=== PATIENT | female | born 1980 | race Caucasian/White ===

== ENCOUNTER 2016-12-16 18:02 | Emergency (ER) | payer OTHER ==
[2016-12-16 18:09] VITALS: TEMP 97.8; BMI 36.9
[2016-12-16] MEDS ORDERED: ASPIRIN 81 MG CHEWABLE TABLETS PO ONE (18:17)
[2016-12-16 18:41] LABS: BASOPHIL 0.9 % (0-2.0); EOSINOPHIL 2.2 % (0-4.5); MCH 28.1 pg (25.7-33.7); MCHC 33.1 g/dl (32.0-36.0); MEAN CELL VOLUME 85.1 fl (80-96); MEAN PLT VOLUME 8.3 fl (7.5-11.1); NEUTROPHILS 56.1 % (42.8-82.8); PLATELET COUNT 223 K/MM3 (134-434); RDW 13.8 % (11.6-15.6)
[2016-12-16] MEDS ORDERED: ASPIRIN 81 MG CHEWABLE TABLETS ONE (18:44)
[2016-12-16 19:04] LABS: INR 1.08 (0.82-1.09); PROTHROMBIN TIME (PATIENT) 11.9 SEC (9.98-11.88)
--- NOTE | 2016-12-16 19:41 | PDOC ---
History of Present Illness - General History Source: Patient Exam Limitations: No Limitations <Vinh Rich - Last Filed: 12/16/16 19:44> <Fátima Zacarias - Last Filed: 12/18/16 00:50> - General Chief Complaint: Chest Pain Stated Complaint: CHEST PAIN/DIFF BREATHING Time Seen by Provider: 12/16/16 18:16 - History of Present Illness Initial Comments: 12/16/16 19:44 The patient is a 36 year old female, with no significant past medical history who presents to the emergency department with chest pain and SOB for about 3 hours. The patient reports having an acute sudden onset of her pain while sitting down watching TV. She reports having a similar episode about 3 weeks ago. She describes the pain as dull, nonradiating, and localized at the mid sternum region of her chest. She also notes having numbness in her right hand during her symptomatic episodes. The patient ranks her pain a 9/10 in pain intensity and reports having nausea in association with her chest pain. She denies recent fevers, chills, headache or dizziness. She denies recent vomit, diarrhea or constipation. She denies recent dysuria, frequency, urgency or hematuria. She denies recent sick contacts and recent travel. LMP was yesterday. She also reports starting to take weight loss pill. Allergies: NKA Past surgical history: Abdominoplasty Social history: Nonsmoker. Denies EtOH use and recreational drug use. Primary Care Physician: Dr. Quinn Dean (Vinh Rich) Past History <Vinh Rich - Last Filed: 12/16/16 19:44> - Past Medical History Anemia: No Asthma: No Cancer: No Cardiac Disorders: No CVA: No COPD: No CHF: No Dementia: No Diabetes: No GI Disorders: No Disorders: No HTN: No Hypercholesterolemia: No Liver Disease: No Seizures: No Thyroid Disease: No Other medical history: DENIES. - Surgical History Abdominal Surgery: Yes (ABDOMINOPLASTY 2008) Appendectomy: No Cardiac Surgery: No Cholecystectomy: No Lung Surgery: No Neurologic Surgery: No Orthopedic Surgery: No - Psycho/Social/Smoking Cessation Hx Suicidal Ideation: No Smoking Status: No Smoking History: Never smoked Have you smoked in the past 12 months: No Number of Cigarettes Smoked Daily: 0 Hx Alcohol Use: Yes (OCCASIONALLY) Drug/Substance Use Hx: No Substance Use Type: Alcohol Hx Substance Use Treatment: No <Fátima Zacarias - Last Filed: 12/18/16 00:50> - Past Medical History Allergies/Adverse Reactions: Allergies Allergy/AdvReac Type Severity Reaction Status Date / Time No Known Drug Allergies Allergy Verified 12/16/16 18:05 Home Medications: Ambulatory Orders NK [No Known Home Medication] 06/07/16 Cardiac Specific PMH - Complaint Specific PMHX Pacemaker: No <Fátima Zacarias - Last Filed: 12/18/16 00:50> Review of Systems - Review of Systems Able to Perform ROS?: Yes <Vinh Rich - Last Filed: 12/16/16 19:44> <Fátima Zacarias - Last Filed: 12/18/16 00:50> - Review of Systems Comments:: 12/16/16 19:45 CONSTITUTIONAL: Absent: fever, chills, diaphoresis, generalized weakness, malaise, loss of appetite HEENT: Absent: rhinorrhea, nasal congestion, throat pain, throat swelling, difficulty swallowing, mouth swelling, ear pain, eye pain, visual Changes CARDIOVASCULAR: +chest pain. Absent: syncope, palpitations, irregular heart rate, lightheadedness, peripheral edema RESPIRATORY: +SOB. Absent: cough, dyspnea with exertion, orthopnea, wheezing, stridor, hemoptysis GASTROINTESTINAL: +nausea. Absent: abdominal pain, abdominal distension, vomiting, diarrhea, constipation, melena, hematochezia GENITOURINARY: Absent: dysuria, frequency, urgency, hesitancy, hematuria, flank pain, genital pain MUSCULOSKELETAL: Absent: myalgia, arthralgia, joint swelling SKIN: Absent: rash, itching, pallor HEMATOLOGIC/IMMUNOLOGIC: Absent: easy bleeding, easy bruising, lymphadenopathy, frequent infections ENDOCRINE: Absent: unexplained weight gain, unexplained weight loss, heat intolerance, cold intolerance NEUROLOGIC: Absent: headache, focal weakness or paresthesias, dizziness, unsteady gait, seizure, mental status changes, bladder or bowel incontinence PSYCHIATRIC: Absent: anxiety, depression, suicidal or homicidal ideation, hallucinations. (Vinh Rich) *Physical Exam <Vinh Rich - Last Filed: 12/16/16 19:44> <Fátima Zacarias - Last Filed: 12/18/16 00:50> - Vital Signs Last Vital Signs Temp Pulse Resp BP Pulse Ox 97.8 F 98 H 17 140/98 98 12/16/16 23:39 12/16/16 23:39 12/16/16 23:39 12/16/16 23:39 12/16/16 23:39 - Physical Exam Comments: 12/16/16 19:45 GENERAL: Well developed, Heavy set. Awake and alert x3. No acute distress. HEENT: Normocephalic, atraumatic. PERRLA, EOMI. No conjunctival pallor. Sclera are non- icteric. Moist mucous membranes. Oropharynx is clear. NECK: Supple. Full ROM. No JVD. Carotid pulses 2+ and symmetric, without bruits. No thyromegaly. No lymphadenopathy. CARDIOVASCULAR: Regular rate and rhythm. No murmurs, rubs, or gallops. Distal pulses are 2+ and symmetric. PULMONARY: No evidence of respiratory distress. Lungs clear to auscultation bilaterally. No wheezing, rales or rhonchi. ABDOMINAL: Soft. Non-tender. Non-distended. No rebound or guarding. No organomegaly. Normoactive bowel sounds. MUSCULOSKELETAL Normal range of motion at all joints. No bony deformities or tenderness. No CVA tenderness. EXTREMITIES: No cyanosis. No clubbing. No edema. No calf tenderness. SKIN: Warm and dry. Normal capillary refill. No rashes. No jaundice. NEUROLOGICAL: Alert, awake, appropriate. Cranial nerves 2-12 intact. No deficits to light touch and temperature in face, upper extremities and lower extremities. No motor deficits in the in face, upper extremities and lower extremities. Normoreflexic in the upper and lower extremities. Normal speech. Toes are down- going bilaterally. Gait is normal without ataxia. PSYCHIATRIC: Cooperative. Good eye contact. Appropriate mood and affect. (Vinh Rich) ED Treatment Course - LABORATORY CBC & Chemistry Diagram: 12/16/16 18:23 12/16/16 18:23 <Vinh Rich - Last Filed: 12/16/16 19:44> - LABORATORY CBC & Chemistry Diagram: 12/16/16 18:23 12/16/16 18:23 <Fátima Zacarias - Last Filed: 12/18/16 00:50> - ADDITIONAL ORDERS Additional order review: 12/16/16 18:23 RBC 4.46 MCV 85.1 MCHC 33.1 RDW 13.8 MPV 8.3 Neutrophils % 56.1 Lymphocytes % 35.2 Monocytes % 5.6 Eosinophils % 2.2 Basophils % 0.9 - RADIOLOGY Radiology Studies Ordered: Category Date Time Status CHEST PA & LAT [RAD] Stat Radiology 12/16/16 20:34 Completed - Medications Given in the ED: ED Medications Discontinued Medications Generic Name Dose Route Start Last Admin Trade Name Ken PRN Reason Stop Dose Admin Aspirin 162 mg 12/16/16 18:17 12/16/16 18:43 Asa - PO 12/16/16 18:18 162 mg ONCE ONE Administration Metoprolol Tartrate 25 mg 12/16/16 23:13 12/16/16 23:37 Lopressor - PO 12/16/16 23:14 25 mg ONCE ONE Administration Medical Decision Making <Vinh Rich - Last Filed: 12/16/16 19:44> <Fátima Zacarias - Last Filed: 12/18/16 00:50> - Medical Decision Making 12/18/16 00:43 36 yo non female has been taking phentermine for weight loss and developed chest pain and sob,she received aspirin -her pain resolved during her observation period -no evidence of AMI on her ekg -she had 2 sets of cardiac enzymes that were negative -labs reviewed -discussed with the pt to refrain from taking phentermine and seeing her physician. I told her that she must have an ECHO and see cardiology before continuing her medication 12/18/16 00:49 (Fátima Zacarias) *DC/Admit/Observation/Transfer <Vinh Rich - Last Filed: 12/16/16 19:44> <Fátima Zacarias - Last Filed: 12/18/16 00:50> Diagnosis at time of Disposition: Exposure to phentermine Qualifiers: Encounter type: initial encounter Qualified Code(s): T50.5X5A - Adverse effect of appetite depressants, initial encounter Chest pain Qualifiers: Chest pain type: unspecified Qualified Code(s): R07.9 - Chest pain, unspecified - Discharge Dispostion Disposition: HOME Condition at time of disposition: Stable - Patient Instructions Printed Discharge Instructions: Phentermine Additional Instructions: please follow up with you rphysician this week Please avoid taking phentermine until you speak to your physician - Attestations Scribe Attestion: 12/16/16 19:45 Documentation prepared by Vinh Rich, acting as medical insurance verifier for Fátima Zacarias MD. (Layla,Vinh)
[2016-12-16 19:45] LABS: ALBUMIN 4.1 g/dl (3.4-5.0); ANION GAP 8 (8-16); BILIRUBIN,TOTAL 0.2 mg/dL (0.2-1.0); CALCIUM 8.9 mg/dL (8.5-10.1); CO2 28 mmol/L (21-32); CREATININE 0.8 mg/dL (0.55-1.02); GLUCOSE,RANDOM 83 mg/dL (74-106); MAGNESIUM 2.2 mg/dL (1.8-2.4); SGOT/AST 18 U/L (15-37); SGPT/ALT 23 U/L (12-78); TOT PROT 7.9 g/dl (6.4-8.2)
[2016-12-16 19:48] LABS: ALK PHOS 66 U/L (45-117); TROPONIN I < 0.02 ng/ml (0.00-0.05)
[2016-12-16] MEDS ORDERED: METOPROLOL TARTRATE 25 MG TABLET (FP) PO ONE (23:13)
[2016-12-16] MEDS ORDERED: METOPROLOL TARTRATE 25 MG TABLET (FP) ONE (23:30)
[2016-12-16 23:41] VITALS: BP 140/98; PULSE 98
[2016-12-17 00:04] LABS: TROPONIN I < 0.02 ng/ml (0.00-0.05)
--- NOTE | 2016-12-17 10:30 | EKG ---
Test Reason : Blood Pressure : / mmHG Vent. Rate : 093 BPM Atrial Rate : 093 BPM P-R Int : 168 ms QRS Dur : 088 ms QT Int : 360 ms P-R-T Axes : 042 054 021 degrees QTc Int : 447 ms NORMAL SINUS RHYTHM POSSIBLE LEFT ATRIAL ENLARGEMENT BORDERLINE ECG NO PREVIOUS ECGS AVAILABLE Confirmed by WILLY ESCALERA MD ([id number]) on 12/17/2016 10:29:28 AM Referred By: Confirmed By:WILLY ESCALERA MD
--- NOTE | 2016-12-17 10:33 | EKG ---
Test Reason : Blood Pressure : / mmHG Vent. Rate : 098 BPM Atrial Rate : 098 BPM P-R Int : 156 ms QRS Dur : 090 ms QT Int : 352 ms P-R-T Axes : 047 050 026 degrees QTc Int : 449 ms NORMAL SINUS RHYTHM NORMAL ECG NO PREVIOUS ECGS AVAILABLE Confirmed by WILLY ESCALERA MD ([id number]) on 12/17/2016 10:33:26 AM Referred By: Confirmed By:WILLY ESCALERA MD
== END 2016-12-17 01:30 | disposition home or self-care (01) ==
LOC: JER 18:02
DX: R07.89 Other chest pain (principal); T50.5X5A Adverse effect of appetite depressants, initial encounter; Y92.038 Other place in apartment as the place of occurrence of the external cause
CPT/HCPCS: 36415; 71020-TC; 80053; 82550; 82553; 83735; 84484; 84703; 85025; 85379; 85610; 93005; 93010; 99285-25

== ENCOUNTER 2018-10-28 21:49 | Emergency (ER) | payer OTHER ==
[2018-10-28 22:30] VITALS: TEMP 98.9; BMI 32.5
--- NOTE | 2018-10-29 00:14 | PDOC ---
*Physical Exam - Vital Signs Last Vital Signs Temp Pulse Resp BP Pulse Ox 98.9 F 107 H 20 137/99 99 10/28/18 22:27 10/28/18 22:27 10/28/18 22:27 10/28/18 22:27 10/28/18 22:27 ED Treatment Course - LABORATORY CBC & Chemistry Diagram: 10/29/18 00:33 10/29/18 00:33 Medical Decision Making - Medical Decision Making 10/29/18 00:14 Patient seen by the advanced practice provider under my direct supervision. Ancillary testing reviewed as necessary. I agree with plan as outlined by the advanced practice provider. *DC/Admit/Observation/Transfer Diagnosis at time of Disposition: Diarrhea Qualifiers: Diarrhea type: unspecified type Qualified Code(s): R19.7 - Diarrhea, unspecified - Referrals Referrals: Milad Melton PA [Primary Care Provider] - - Patient Instructions - Post Discharge Activity
--- NOTE | 2018-10-29 00:26 | PDOC ---
History of Present Illness - General Chief Complaint: Diarrhea Stated Complaint: DIARRHEA Time Seen by Provider: 10/29/18 00:12 History Source: Patient - History of Present Illness Initial Comments: 10/29/18 01:33 38-year-old female complaining of diarrhea more than 7 times today. denies bloody diarrhea, Patient has generalized abdominal pain. Denies nausea, vomiting. 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 Denies fevers/chills, anorexia. 10/29/18 01:39 Past History - Past Medical History Allergies/Adverse Reactions: Allergies Allergy/AdvReac Type Severity Reaction Status Date / Time No Known Drug Allergies Allergy Verified 10/28/18 22:27 Home Medications: Ambulatory Orders NK [No Known Home Medication] 06/07/16 Anemia: No Asthma: No Cancer: No Cardiac Disorders: No CVA: No COPD: No CHF: No Dementia: No Diabetes: No GI Disorders: No Disorders: No HTN: Yes Hypercholesterolemia: No Liver Disease: No Seizures: No Thyroid Disease: No - Surgical History Abdominal Surgery: Yes (ABDOMINOPLASTY 2008) Appendectomy: No Cardiac Surgery: No Cholecystectomy: No Lung Surgery: No Neurologic Surgery: No Orthopedic Surgery: No - Suicide/Smoking/Psychosocial Hx Smoking Status: No Smoking History: Never smoked Have you smoked in the past 12 months: No Number of Cigarettes Smoked Daily: 0 Information on smoking cessation initiated: No Hx Alcohol Use: No Drug/Substance Use Hx: No Substance Use Type: Alcohol Hx Substance Use Treatment: No Review of Systems - Review of Systems Able to Perform ROS?: Yes Is the patient limited Divehi proficient: No Constitutional: No: Symptoms Reported, See HPI, Chills, Diaphoresis, Fever, Loss of Appetite, Malaise, Night Sweats, Weakness, Weight Stable, Unintentional Wgt. Loss, Unexplained wgt Loss, Other ABD/GI: Yes: Diarrhea, Abdominal cramping : No: Symptoms Reported, See HPI, Burning, Dysuria, Discharge, Frequency, Flank Pain, Hematuria, Incontinence, Pain, Urgency, Testicular Mass, Testicular Swelling, Lesions, Testicular Pain, Other Musculoskeletal: No: Symptoms Reported, See HPI, Back Pain, Gout, Joint Pain, Joint Swelling, Muscle Pain, Muscle Weakness, Neck Pain, Joint Stiffness, Other *Physical Exam - Vital Signs Last Vital Signs Temp Pulse Resp BP Pulse Ox 98.9 F 107 H 20 137/99 99 10/28/18 22:27 10/28/18 22:27 10/28/18 22:27 10/28/18 22:27 10/28/18 22:27 - Physical Exam General Appearance: Yes: Appropriately Dressed Respiratory/Chest: positive: Lungs Clear, Normal Breath Sounds Cardiovascular: positive: Regular Rhythm, Regular Rate Gastrointestinal/Abdominal: positive: Tender (generalized tenderness), Soft, Increased Bowel Sounds Extremity: positive: Normal Capillary Refill, Normal Inspection, Normal Range of Motion Integumentary: positive: Dry, Warm ED Treatment Course - LABORATORY CBC & Chemistry Diagram: 10/29/18 00:33 10/29/18 02:19 Progress Note - Progress Note Progress Note: diarrhea gastroenteritis p: labs ivf ua Medical Decision Making - Medical Decision Making 10/29/18 03:05 patient now has no abdominal pain. reports feeling better. will d/ chome/ *DC/Admit/Observation/Transfer Diagnosis at time of Disposition: Gastroenteritis Diarrhea Qualifiers: Diarrhea type: unspecified type Qualified Code(s): R19.7 - Diarrhea, unspecified - Discharge Dispostion Disposition: HOME - Referrals Referrals: Milad Melton PA [Primary Care Provider] - - Patient Instructions Printed Discharge Instructions: Viral Gastroenteritis Additional Instructions: drink plenty of fluids BRAT(bananas, rice , apples, toast) diet follow up with your doctor as soon as possible. Additional Instructions: * Please call your personal physician to report your Emergency Department visit and to report your progress, if any. * If there is no improvement in symptoms in 2 days call your physician. * Return to the Emergency Department for any worsening symptoms. - Post Discharge Activity Forms/Work/School Notes: Back to Work
[2018-10-29] MEDS ORDERED: SODIUM CHLORIDE 1,000 ML IV STA (00:27)
[2018-10-29] MEDS ORDERED: FAMOTIDINE 20 MG/50 ML IVPB 20 MG/50 ML MG IVPB ONE ×2 (00:33→01:04)
[2018-10-29] MEDS ORDERED: ONDANSETRON 4 MG/2 ML VIAL IVPUSH ONE (00:33)
[2018-10-29 00:41] LABS: BASO % 1.1 % (0-2.0); EOS % 1.6 % (0-4.5); HEMATOCRIT 38.6 % (32.4-45.2); HEMOGLOBIN 13.4 GM/dL (10.7-15.3); LYMPH % 30.1 % (8-40); MCH 30.8 pg (25.7-33.7); MCHC 34.8 g/dl (32.0-36.0); MEAN CELL VOLUME 88.7 fl (80-96); MEAN PLT VOLUME 8.5 fl (7.5-11.1); MONO % 10.3 % (3.8-10.2); NEUT % 56.9 % (42.8-82.8); PLATELET COUNT 203 K/MM3 (134-434); RBC 4.35 M/mm3 (3.60-5.2); RDW 13.8 % (11.6-15.6)
[2018-10-29] MEDS ORDERED: ONDANSETRON 4 MG/2 ML VIAL ONE (01:17)
[2018-10-29 01:54] LABS: PH,URINE 6.5 (5.0-8.0); URINE APPEARANCE CLEAR; URINE BILIRUBIN NEGATIVE (NEGATIVE); URINE COLOR YELLOW; URINE GLUCOSE (UA) NEGATIVE (NEGATIVE); URINE KETONE NEGATIVE (NEGATIVE); URINE LEUK ESTERASE TRACE (NEGATIVE); URINE NITRITE NEGATIVE (NEGATIVE); URINE PROTEIN NEGATIVE (NEGATIVE)
[2018-10-29 02:47] LABS: EPI CELLS 20 /HPF (0-5); URINE BACTERIA 120 /hpf (NEGATIVE); URINE WBC 15 /hpf (0-5)
[2018-10-29 02:50] LABS: ALBUMIN 3.4 g/dl (3.4-5.0); ALK PHOS 53 U/L (45-117); ANION GAP 9 MMOL/L (8-16); BILIRUBIN,TOTAL 0.2 mg/dL (0.2-1); BLOOD UREA NITROGEN 8 mg/dL (7-18); CALCIUM 7.7 mg/dL (8.5-10.1); CHLORIDE 110 mmol/L (98-107); CO2 22 mmol/L (21-32); CREATININE 0.7 mg/dL (0.55-1.3); GLUCOSE,RANDOM 83 mg/dL (74-106); LIPASE 142 U/L (73-393); POTASSIUM 3.8 mmol/L (3.5-5.1); SGOT/AST 25 U/L (15-37); SGPT/ALT 38 U/L (13-61); SODIUM 141 mmol/L (136-145)
[2018-10-29 03:15] VITALS: BP 162/99; PULSE 99
== END 2018-10-29 03:15 | disposition home or self-care (01) ==
LOC: JER 21:49
PROC: 3E0337Z Introduction of Electrolytic and Water Balance Substance into Peripheral Vein, Percutaneous Approach (ICD-10-PCS; principal; 2018-10-28)
PROC: 3E033GC Introduction of Other Therapeutic Substance into Peripheral Vein, Percutaneous Approach (ICD-10-PCS; 2018-10-28)
PROC: 3E033GC Introduction of Other Therapeutic Substance into Peripheral Vein, Percutaneous Approach (ICD-10-PCS; 2018-10-28)
DX: K52.9 Noninfective gastroenteritis and colitis, unspecified (principal)
CPT/HCPCS: 36415; 80053; 81003; 83690; 84703; 85025; 96361; 96365; 96375; 99282-25; J7030

== ENCOUNTER 2018-12-22 21:42 | Emergency (ER) | payer OTHER ==
[2018-12-22 21:56] VITALS: BP 154/96; PULSE 110; TEMP 98.4; BMI 32.5
--- NOTE | 2018-12-22 21:58 | PDOC ---
Rapid Medical Evaluation Chief Complaint: Pain, Acute Time Seen by Provider: 12/22/18 21:56 Medical Evaluation: Allergies Allergy/AdvReac Type Severity Reaction Status Date / Time No Known Drug Allergies Allergy Verified 12/22/18 21:54 12/22/18 21:56 I have performed a brief in-person evaluation of this patient. The patient presents with a chief complaint of: RUQ abd pains since yesterday with nausea but no vomiting. Denies diarrhea, constipation, fever or chills Pertinent physical exam findings: A&O x 3 I have ordered the following: CBC, CMP, lipase, abd U/S The patient will proceed to the ED for further evaluation. Discharge Disposition - Diagnosis Abdominal pain Qualifiers: Abdominal location: right lower quadrant Qualified Code(s): R10.31 - Right lower quadrant pain - Discharge Dispostion Condition at time of disposition: Stable - Referrals - Patient Instructions - Post Discharge Activity
[2018-12-22 23:55] LABS: BASO % 0.6 % (0-2.0); EOS % 1.4 % (0-4.5); HEMATOCRIT 38.8 % (32.4-45.2); HEMOGLOBIN 12.8 GM/dL (10.7-15.3); LYMPH % 24.6 % (8-40); MCHC 32.9 g/dl (32.0-36.0); MEAN CELL VOLUME 88.2 fl (80-96); MEAN PLT VOLUME 8.6 fl (7.5-11.1); MONO % 8.4 % (3.8-10.2); PLATELET COUNT 219 K/MM3 (134-434); RDW 13.5 % (11.6-15.6); WHITE BLOOD COUNT 10.5 K/mm3 (4.0-10.0)
[2018-12-22 23:58] LABS: EPI CELLS 9.6 /HPF (0-5/HPF); PH,URINE 8.5 (5.0-8.0); URINE APPEARANCE CLEAR; URINE BACTERIA 377.2 /hpf (NEGATIVE); URINE BILIRUBIN NEGATIVE (NEGATIVE); URINE CASTS 0 /lpf (0-8); URINE COLOR YELLOW; URINE GLUCOSE (UA) NEGATIVE (NEGATIVE); URINE KETONE NEGATIVE (NEGATIVE); URINE LEUK ESTERASE NEGATIVE (NEGATIVE); URINE NITRITE NEGATIVE (NEGATIVE); URINE PROTEIN NEGATIVE (NEGATIVE); URINE RBC 3 /hpf (0-4); URINE UROBILINOGEN 0.2 mg/dL (0.2-1.0); URINE WBC 1 /hpf (0-5)
[2018-12-23] MEDS ORDERED: IBUPROFEN 400 MG TABLET (FP) PO ONE (00:01)
[2018-12-23 00:26] LABS: ALBUMIN 3.6 g/dl (3.4-5.0); ALK PHOS 60 U/L (45-117); ANION GAP 8 MMOL/L (8-16); BILIRUBIN,TOTAL 0.3 mg/dL (0.2-1); BLOOD UREA NITROGEN 11 mg/dL (7-18); CALCIUM 8.4 mg/dL (8.5-10.1); CHLORIDE 105 mmol/L (98-107); CO2 25 mmol/L (21-32); CREATININE 0.8 mg/dL (0.55-1.3); GLUCOSE,RANDOM 86 mg/dL (74-106); LIPASE 181 U/L (73-393); POTASSIUM 3.7 mmol/L (3.5-5.1); SGOT/AST 16 U/L (15-37); SGPT/ALT 27 U/L (13-61); SODIUM 138 mmol/L (136-145); TOT PROT 7.4 g/dl (6.4-8.2)
[2018-12-23] MEDS ORDERED: IBUPROFEN 600 MG TABLET (FP) PO ONE (00:47)
[2018-12-23] MEDS ORDERED: SULFAMETHOXAZOLE/TRIMETHOPRIM 800MG/160MG D.S. TABLET PO ONE (02:07)
--- NOTE | 2018-12-23 02:16 | PDOC ---
Documentation entered by Asia Harkins SCRIBE, acting as scribe for Fátima Zacarias MD. Fátima Zacarias MD: This documentation has been prepared by the Shahana diaz Daisy, SCRIBE, under my direction and personally reviewed by me in its entirety. I confirm that the documentation accurately reflects all work, treatment, procedures, and medical decision making performed by me. History of Present Illness - General Chief Complaint: Pain, Acute Stated Complaint: PAIN IN THE SIDE Time Seen by Provider: 12/22/18 21:56 History Source: Patient Exam Limitations: No Limitations - History of Present Illness Initial Comments: 12/22/18 23:03 The patient is a 38 YOF with a PMH of fibroids s/p hysterectomy and HTN who presents to the ER with right lower back pain radiating anteriorly to the right mid abdomen. Patient also admits to nausea, but no vomiting. She has been taking Tylenol and Motrin at home for her pain. No fever, chills, vomiting, urinary symptoms, or changes in bowel movements. Allergies: NKDA Surgeries: abdominoplasty, breast implants, hysterectomy Social Hx: None reported Past History - Past Medical History Allergies/Adverse Reactions: Allergies Allergy/AdvReac Type Severity Reaction Status Date / Time No Known Drug Allergies Allergy Verified 12/22/18 21:54 Home Medications: Ambulatory Orders Ibuprofen 800 mg PO TID PRN #12 tablet MDD 3 tabs 12/23/18 Sulfamethoxazole/Trimethoprim [Bactrim Ds -] 1 tab PO BID #14 tablet 12/23/18 Anemia: No Asthma: No Cancer: No Cardiac Disorders: No CVA: No COPD: No CHF: No Dementia: No Diabetes: No GI Disorders: No Disorders: No HTN: Yes Hypercholesterolemia: No Liver Disease: No Seizures: No Thyroid Disease: No - Surgical History Abdominal Surgery: Yes (ABDOMINOPLASTY 2008) Appendectomy: No Cardiac Surgery: No Cholecystectomy: No Lung Surgery: No Neurologic Surgery: No Orthopedic Surgery: No - Suicide/Smoking/Psychosocial Hx Smoking Status: No Smoking History: Never smoked Have you smoked in the past 12 months: No Number of Cigarettes Smoked Daily: 0 Hx Alcohol Use: No Drug/Substance Use Hx: No Substance Use Type: Alcohol Hx Substance Use Treatment: No Review of Systems - Review of Systems Able to Perform ROS?: Yes Comments:: 12/22/18 23:08 ADULT ROS GENERAL/CONSTITUTIONAL: No fever or chills. No weakness. HEAD, EYES, EARS, NOSE AND THROAT: No change in vision. No ear pain or discharge. No sore throat. CARDIOVASCULAR: No chest pain or shortness of breath. RESPIRATORY: No cough, wheezing, or hemoptysis. GASTROINTESTINAL: No vomiting, diarrhea or constipation. (+) right lower quadrant pain. (+) right flank pain. (+) nausea. GENITOURINARY: No dysuria, frequency, or change in urination. MUSCULOSKELETAL: No joint or muscle swelling or pain. No neck or back pain. SKIN: No rash NEUROLOGIC: No headache, vertigo, loss of consciousness, or change in strength/ sensation. ENDOCRINE: No increased thirst. No abnormal weight change. HEMATOLOGIC/LYMPHATIC: No anemia, easy bleeding, or history of blood clots. ALLERGIC/IMMUNOLOGIC: No hives or skin allergy. *Physical Exam - Vital Signs Last Vital Signs Temp Pulse Resp BP Pulse Ox 98.4 F 110 H 18 154/96 100 12/22/18 21:55 12/22/18 21:55 12/22/18 21:55 12/22/18 21:55 12/22/18 21:55 - Physical Exam Comments: 12/22/18 23:09 GENERAL: Awake, alert, and fully oriented, in no acute distress HEAD: No signs of trauma EYES: PERRLA, EOMI, sclera anicteric, conjunctiva clear ENT: Auricles normal inspection, hearing grossly normal, nares patent, oropharynx clear without exudates. Moist mucosa NECK: Normal ROM, supple, no lymphadenopathy, JVD, or masses LUNGS: Breath sounds equal, clear to auscultation bilaterally. No wheezes, and no crackles HEART: Regular rate and rhythm, normal S1 and S2, no murmurs, rubs or gallops ABDOMEN: Soft, normoactive bowel sounds. No guarding, no rebound. (+) right flank tenderness. (+) right mid abdomen tenderness. EXTREMITIES: Normal range of motion, no edema. No clubbing or cyanosis. No cords, erythema, or tenderness NEUROLOGICAL: Cranial nerves II through XII grossly intact. Normal speech, normal gait SKIN: Warm, Dry, normal turgor, no rashes or lesions noted. ED Treatment Course - LABORATORY CBC & Chemistry Diagram: 12/22/18 23:31 12/22/18 23:31 *DC/Admit/Observation/Transfer Diagnosis at time of Disposition: Right flank pain - Discharge Dispostion Disposition: HOME Condition at time of disposition: Stable - Prescriptions Prescriptions: Ibuprofen 800 mg PO TID PRN #12 tablet MDD 3 tabs PRN Reason: Back Pain Sulfamethoxazole/Trimethoprim [Bactrim Ds -] 1 tab PO BID #14 tablet - Referrals Referrals: Milad Melton PA [Primary Care Provider] - - Patient Instructions Printed Discharge Instructions: DI for Low Back Pain, DI for Urinary Tract Infection (UTI) Additional Instructions: please pharmacy picking tech your antibiotics and pain medications at your pharmacy If you develop any worsening pain ,fever please return to the emergency department Print Language: CITIZEN OF [place] - Post Discharge Activity
[2018-12-23] MEDS ORDERED: SULFAMETHOXAZOLE/TRIMETHOPRIM 800MG/160MG D.S. TABLET ONE (02:18)
== END 2018-12-23 02:40 | disposition home or self-care (01) ==
LOC: JER 21:42
DX: N39.0 Urinary tract infection, site not specified (principal)
CPT/HCPCS: 36415; 71046-TC-FY; 76705-TC; 80053; 81003; 83690; 84702; 85025; 99282-25

== ENCOUNTER 2019-05-20 14:56 | Emergency (ER) | payer OTHER ==
[2019-05-20 15:03] VITALS: BP 157/90; PULSE 118; TEMP 102.7; BMI 34.0
--- NOTE | 2019-05-20 15:04 | PDOC ---
Rapid Medical Evaluation Time Seen by Provider: 05/20/19 15:00 Medical Evaluation: Allergies Allergy/AdvReac Type Severity Reaction Status Date / Time No Known Drug Allergies Allergy Verified 12/22/18 21:54 05/20/19 15:00 I have performed a brief in-person evaluation of this patient. The patient presents with a chief complaint of: fever, cough Pertinent physical exam findings:stable and in NAD, non-focal I have ordered the following: flu, cough The patient will proceed to the ED for further evaluation. 05/20/19 15:06
[2019-05-20] MEDS ORDERED: ACETAMINOPHEN 325 MG TABLET (FP) PO ONE (15:15)
--- NOTE | 2019-05-20 15:27 | PDOC ---
History of Present Illness - General Chief Complaint: Respiratory Stated Complaint: FEVER/COUGHING Time Seen by Provider: 05/20/19 15:00 - History of Present Illness Initial Comments: 05/20/19 15:27 CHIEF COMPLAINT: fever, cough, headache HISTORY OF PRESENT ILLNESS: 39 yo F with hx HTN and fibroids s/p hysterectomy presents to [facility] with fever, cough, and headache x 4 days. Patient reports feeling worn down with some congestion last week but then four days ago started coughing. Patient denies any headache, fever, chills, nausea, vomiting , diarrhea. No recent travel or sick contacts. PAST MEDICAL HISTORY: Denies past medical history FAMILY HISTORY: Denies SOCIAL HISTORY: Denies tobacco, alcohol, illicit drug use. SURGICAL HISTORY: Denies ALLERGIES: No known drug allergies REVIEW OF SYSTEMS General/Constitutional: Fever. Denies weakness, weight change. HEENT: Denies change in vision. Denies ear pain or discharge. Denies sore throat. Cardiovascular: Denies chest pain or shortness of breath. Respiratory: Cough x 4 days. Gastrointestinal: Denies nausea, vomiting, diarrhea or constipation. Denies rectal bleeding. Genitourinary: Denies dysuria, frequency, or change in urination. Musculoskeletal: Denies joint or muscle swelling or pain. Denies neck or back pain. Skin: Denies rash or easy bruising. Neurologic: Denies headache, vertigo, loss of consciousness, or loss of sensation. Psychiatric: Denies depression or anxiety. PHYSICAL EXAM General Appearance: Well-appearing, appropriately dressed. No apparent distress , no intoxication. HEENT: EOMI, PERRLA, normal ENT inspection, normal voice, TMs normal, pharynx normal. No conjunctival pallor. No photophobia, scleral icterus. Neck: Supple. Trachea midline. No tenderness, rigidity, carotid bruit, stridor , lymphadenopathy, or thyromegaly. Respiratory/Chest: Lungs CTAB. No shortness of breath, chest tenderness, respiratory distress, accessory muscle use. No crackles, rales, rhonchi, stridor , wheezing, dullness Cardiovascular: RRR. S1, S2. No JVD, murmur, bradycardia, tachycardia. Gastrointestinal/Abdominal: Normal bowel sounds. Abdomen soft, non-distended. No tenderness or rebound tenderness. No organomegaly, pulsatile mass, guarding , hernia, hepatomegaly, splenomegaly. Lymphatic: No adenopathy, tenderness. Musculoskeletal/Extremities: Normal inspection. FROM of all extremities, normal capillary refill. Pelvis Stable. No CVA tenderness. No tenderness to extremities, pedal edema, swelling, erythema or deformity. Integumentary: Appropriate color, dry, warm. No cyanosis, erythema, jaundice or rash Neurologic: fare collector II-XII intact. Fully oriented, alert. Appropriate mood/affect. Motor strength 5/5. No appreciable EOM palsy, facial droop or sensory deficit. Past History - Past Medical History Allergies/Adverse Reactions: Allergies Allergy/AdvReac Type Severity Reaction Status Date / Time No Known Drug Allergies Allergy Verified 12/22/18 21:54 Home Medications: Ambulatory Orders Ibuprofen 800 mg PO TID PRN #12 tablet MDD 3 tabs 12/23/18 Sulfamethoxazole/Trimethoprim [Bactrim Ds -] 1 tab PO BID #14 tablet 12/23/18 Azithromycin [Zithromax 250mg Tablets -] 250 mg PO UTDICT #6 tab 05/20/19 Benzonatate [Tessalon Pearls -] 100 mg PO TID #21 capsule 05/20/19 Ibuprofen [Motrin -] 600 mg PO TID #21 tablet 05/20/19 Anemia: No Asthma: No Cancer: No Cardiac Disorders: No CVA: No COPD: No CHF: No Dementia: No Diabetes: No GI Disorders: No Disorders: No HTN: Yes Hypercholesterolemia: No Liver Disease: No Seizures: No Thyroid Disease: No - Surgical History Abdominal Surgery: Yes (ABDOMINOPLASTY 2008) Appendectomy: No Cardiac Surgery: No Cholecystectomy: No Lung Surgery: No Neurologic Surgery: No Orthopedic Surgery: No - Psycho Social/Smoking Cessation Hx Smoking Status: No Smoking History: Never smoked Have you smoked in the past 12 months: No Number of Cigarettes Smoked Daily: 0 Hx Alcohol Use: No Drug/Substance Use Hx: No Substance Use Type: Alcohol Hx Substance Use Treatment: No *Physical Exam - Vital Signs Last Vital Signs Temp Pulse Resp BP Pulse Ox 102.7 F H 118 H 20 157/90 95 05/20/19 15:00 05/20/19 15:00 05/20/19 15:00 05/20/19 15:00 05/20/19 15:00 Medical Decision Making - Medical Decision Making 05/20/19 16:05 39 yo F with hx HTN and fibroids s/p hysterectomy presents to [facility] with fever, cough, and headache x 4 days. -flu -cxr -tylenol flu swab negative. CXR with b/l lower lobe infiltrate suggestive of pneumonia. -tessalon perles -z-pack Advised patient to take medication as prescribed and follow up with PCP within the next week. Advised patient of signs and symptoms for return to ED. Patient verbalized understanding and agrees to plan. Discharge - Discharge Information Problems reviewed: Yes Clinical Impression/Diagnosis: Pneumonia Qualifiers: Pneumonia type: due to unspecified organism Laterality: bilateral Lung location : lower lobe of lung Qualified Code(s): J18.1 - Lobar pneumonia, unspecified organism Condition: Stable Disposition: HOME - Admission No - Additional Discharge Information Prescriptions: Azithromycin [Zithromax 250mg Tablets -] 250 mg PO UTDICT #6 tab Benzonatate [Tessalon Pearls -] 100 mg PO TID #21 capsule Ibuprofen [Motrin -] 600 mg PO TID #21 tablet - Follow up/Referral Referrals: Eitan Jang MD [Staff Physician] - - Patient Discharge Instructions Patient Printed Discharge Instructions: DI for Pneumonia -- Adult Additional Instructions: Please take medications as prescribed. Follow up with your primary care doctor within the next week for continued monitoring of your symptoms. If you develop fever unrelieved by Motrin or Tylenol, persistent vomiting or diarrhea, headache , neck pain, or any new or worsening symptoms, please return to the ER immediately. - Post Discharge Activity
[2019-05-20] MEDS ORDERED: ACETAMINOPHEN 325 MG TABLET (FP) ONE (15:31)
== END 2019-05-20 16:14 | disposition home or self-care (01) ==
LOC: JERFT 14:56
DX: J18.1 Lobar pneumonia, unspecified organism (principal); D25.9 Leiomyoma of uterus, unspecified
CPT/HCPCS: 71046-TC-FY; 87804; 99281-25

== ENCOUNTER 2021-03-29 13:13 | Emergency (ER) | payer OTHER ==
[2021-03-29 13:48] VITALS: BP 145/103; PULSE 83; TEMP 98; BMI 36.9
[2021-03-29 15:38] LABS: BASO % 0.2 % (0-2.0); EOS % 1.7 % (0-4.5); HEMATOCRIT 37.7 % (32.4-45.2); HEMOGLOBIN 13.1 GM/dL (10.7-15.3); LYMPH % 33.6 % (8-40); MCH 30.1 pg (25.7-33.7); MCHC 34.6 g/dl (32.0-36.0); MEAN CELL VOLUME 86.9 fl (80-96); MEAN PLT VOLUME 8.2 fl (7.5-11.1); MONO % 5.5 % (3.8-10.2); PLATELET COUNT 226 10^3/uL (134-434); RBC 4.34 M/mm3 (3.60-5.2); RDW 13.6 % (11.6-15.6); WHITE BLOOD COUNT 8.8 K/mm3 (4.0-10.0)
[2021-03-29 15:44] LABS: INR 1.03 (0.83-1.09); PROTHROMBIN TIME (PATIENT) 12.7 SEC (9.7-13.0)
[2021-03-29 16:09] LABS: CHLORIDE 102 mmol/L (98-107); SODIUM 135 mmol/L (136-145)
[2021-03-29 16:12] LABS: ANION GAP 6 MMOL/L (8-16); CO2 28 mmol/L (21-32); GLUCOSE,RANDOM 80 mg/dL (74-106); MAGNESIUM 2.2 mg/dL (1.8-2.4)
[2021-03-29 16:15] LABS: CREATININE 0.8 mg/dL (0.55-1.3); SGOT/AST 20 U/L (15-37); SGPT/ALT 34 U/L (13-61)
[2021-03-29 16:16] LABS: BILIRUBIN,TOTAL 0.3 mg/dL (0.2-1); TOT PROT 7.9 g/dl (6.4-8.2)
[2021-03-29 16:17] LABS: ALK PHOS 59 U/L (45-117)
[2021-03-29] MEDS ORDERED: NAPROXEN 500 MG TABLET PO ONE (16:39)
[2021-03-29] MEDS ORDERED: NAPROXEN 500 MG TABLET ONE (17:27)
== END 2021-03-29 17:40 | disposition home or self-care (01) ==
LOC: JER 13:13
DX: R07.9 Chest pain, unspecified (principal)
CPT/HCPCS: 36415; 71046-TC-FY; 80053; 82550; 82553; 83735; 84484; 84703; 85025; 85379; 85610; 93005; 93010; 99285-25; C9803; U0003; U0005